=== PATIENT | female | born 1985 | race African-American/Black ===

== ENCOUNTER → 2022-11-12 | Outpatient (CLI) | payer OTHER ==
[2022-11-12 14:30] LABS: FREE T4 1.32 NG/DL (0.89-1.76)
[2022-11-12 14:31] LABS: THYROID STIMULATING HORMONE 0.034 uIU/ML (0.55-4.78)
== END ==
LOC: M PLALAB 10:50
PROVIDERS: ATTEND Nurse Practitioner Family
DX: E89.0 Postprocedural hypothyroidism (principal)

== ENCOUNTER → 2023-01-24 | Outpatient (CLI) | payer OTHER | LOC: M PLAIMG 15:23 | PROVIDERS: ATTEND Student in an Organized Health Care Education/Training Program | DX: M54.59 Other low back pain (principal) ==

== ENCOUNTER 2023-09-18 20:06 | Emergency (ER) | payer OTHER ==
[~2023-09-18] VITALS: Ht 165.1 cm; Wt 134.3 kg
[2023-09-18] MEDS ORDERED: METF-838 (21:16)
[2023-09-18] MEDS ORDERED: SYNT25TA (21:16)
[2023-09-18] MEDS ORDERED: DULO1CAP4 (21:16)
[2023-09-18] MEDS ORDERED: TIZA2TA (21:16)
[2023-09-18 21:40] LABS: HEMATOCRIT 33.2 % (36.0-47.0); MEAN CORPUSCULAR HEMOGLOBIN 25.6 pg (27.0-33.0); MEAN CORPUSCULAR HGB CONC 33.1 g/dl (32.0-36.5); MEAN CORPUSCULAR VOLUME 77.4 fl (80.0-96.0); PLATELET COUNT, AUTOMATED 288 10^3/uL (150-450); RED BLOOD COUNT 4.29 10^6/uL (4.00-5.40); WHITE BLOOD COUNT 11.5 10^3/uL (4.0-10.0)
[2023-09-18] MEDS ORDERED: ANUS25SU PR (21:46)
[2023-09-18 21:58] VITALS: BP 128/74; TEMP 98.4; O2SAT 100
== END 2023-09-18 21:59 | disposition home or self-care (01) ==
LOC: M ED 20:06
DX: K64.9 Unspecified hemorrhoids (principal); Z88.0 Allergy status to penicillin

== ENCOUNTER → 2023-11-24 | Outpatient (REF) | payer OTHER ==
[~2023-11-24] MED LIST: ANUS25SU PR; DULO1CAP4; METF-838; SYNT25TA; TIZA2TA
[2023-11-24 17:48] LABS: APPEARANCE, URINE CLEAR (CLEAR); BACTERIA, URINE AUTO 1+ (NEGATIVE); BILIRUBIN, URINE AUTO NEGATIVE (NEGATIVE); BLOOD, URINE BLOOD 3+ (NEGATIVE); CALCIUM OXALATE CRYSTALS SMALL; COLOR, URINE STRAW (YELLOW); GLUCOSE, URINE (UA) AUTO 1+ mg/dL (NEGATIVE); KETONE, URINE AUTO NEGATIVE (NEGATIVE); LEUKOCYTE ESTERASE, URINE AUTO NEGATIVE (NEGATIVE); NITRITE, URINE AUTO NEGATIVE (NEGATIVE); PROTEIN, URINE AUTO NEGATIVE (NEGATIVE); RBC, URINE AUTO 5 /HPF (0-3); SQUAMOUS EPITHELIAL CELL UR AU 0 /HPF (0-6); UROBILINOGEN, URINE AUTO 0.2 mg/dL (0.0-2.0); WBC, URINE AUTO 1 /HPF (0-3)
[2023-11-24 18:01] LABS: CREATININE,RANDOM URINE 47.6 MG/DL
== END ==
LOC: M SFHCRHEU 15:28
PROVIDERS: ATTEND Internal Medicine
DX: R76.8 Other specified abnormal immunological findings in serum (principal)

== ENCOUNTER → 2023-11-28 | Outpatient (REF) | payer OTHER ==
[2023-11-28 16:47] LABS: APPEARANCE, URINE CLEAR (CLEAR); BACTERIA, URINE AUTO NEGATIVE (NEGATIVE); BILIRUBIN, URINE AUTO NEGATIVE (NEGATIVE); BLOOD, URINE BLOOD 1+ (NEGATIVE); COLOR, URINE STRAW (YELLOW); GLUCOSE, URINE (UA) AUTO NEGATIVE (NEGATIVE); KETONE, URINE AUTO NEGATIVE (NEGATIVE); LEUKOCYTE ESTERASE, URINE AUTO TRACE (NEGATIVE); MUCUS, URINE SMALL (NEGATIVE); NITRITE, URINE AUTO NEGATIVE (NEGATIVE); PROTEIN, URINE AUTO NEGATIVE (NEGATIVE); RBC, URINE AUTO 2 /HPF (0-3); SPECIFIC GRAVITY URINE AUTO 1.012 (1.002-1.035); SQUAMOUS EPITHELIAL CELL UR AU 0 /HPF (0-6); UROBILINOGEN, URINE AUTO 0.2 mg/dL (0.0-2.0); WBC, URINE AUTO 1 /HPF (0-3)
[2023-11-28 17:04] LABS: TOTAL PROTEIN,RANDOM URINE 12.3 MG/DL (0.0-14.0)
[2023-11-28 17:09] LABS: CREATININE,RANDOM URINE 73.4 MG/DL
[2023-11-28 17:13] LABS: COMPLEMENT C4 56.9 MG/DL (12-36)
[2023-12-03 09:11] LABS: COMPLEMENT TOTAL (CH50) > 60 U/mL (>41)
== END ==
LOC: M SFHCRHEU 12:45
PROVIDERS: ATTEND Internal Medicine
DX: R76.8 Other specified abnormal immunological findings in serum (principal); M25.50 Pain in unspecified joint

== ENCOUNTER → 2023-12-05 | Outpatient (CLI) | payer OTHER ==
[~2023-12-05] MED LIST changes: +GASTROGRAFIN SOLUTION 30ML As Ordered ONE; +ISOVUE-370 76% 100ML VIAL As Ordered ONE
== END ==
LOC: M RAD 15:27
PROVIDERS: ATTEND Family Medicine
DX: R22.2 Localized swelling, mass and lump, trunk (principal); K42.9 Umbilical hernia without obstruction or gangrene; N85.2 Hypertrophy of uterus
CPT/HCPCS: 74177; Q9967

== ENCOUNTER → 2023-12-19 | Outpatient (CLI) | payer OTHER ==
[~2023-12-19] MED LIST changes: -GASTROGRAFIN SOLUTION 30ML As Ordered ONE; -ISOVUE-370 76% 100ML VIAL As Ordered ONE
== END ==
LOC: M PLAIMG 09:26
PROVIDERS: ATTEND Internal Medicine
DX: M54.9 Dorsalgia, unspecified (principal); M75.81 Other shoulder lesions, right shoulder; M75.82 Other shoulder lesions, left shoulder; R93.89 Abnormal findings on diagnostic imaging of other specified body structures

== ENCOUNTER → 2023-12-19 | Outpatient (CLI) | payer OTHER | LOC: M SLEEP HO 11:21 | PROVIDERS: ATTEND Internal Medicine | DX: G47.9 Sleep disorder, unspecified (principal); R53.82 Chronic fatigue, unspecified ==

== ENCOUNTER 2024-01-20 08:33 | Day surgery (SDC) | payer OTHER ==
[~2024-01-20] VITALS: Ht 165.1 cm; Wt 134.3 kg
[~2024-01-20 08:33] MED LIST changes: +AMLO1TAB25 PO; +D 50CAP2 PO; +LEVO2TA PO; +MICA80TA2 PO; +NAPR-885 PO; +OMEP-173 PO; +TIZA10TA PO; +propofoL 200 MG/20 ML VIAL As Ordered ONE
[2024-01-20] MEDS: NS 1,000 ML IV ONE (09:02)
[2024-01-20 10:19] VITALS: TEMP 98.5
[2024-01-20 10:41] VITALS: BP 143/90; O2SAT 98
== END 2024-01-20 10:51 | disposition home or self-care (01) ==
LOC: M OPP 08:33
PROVIDERS: ATTEND Internal Medicine Gastroenterology
DX: D12.6 Benign neoplasm of colon, unspecified (principal); K64.8 Other hemorrhoids; K64.4 Residual hemorrhoidal skin tags; K57.30 Diverticulosis of large intestine without perforation or abscess without bleeding; D50.9 Iron deficiency anemia, unspecified; K92.1 Melena; K29.70 Gastritis, unspecified, without bleeding; K44.9 Diaphragmatic hernia without obstruction or gangrene; E11.9 Type 2 diabetes mellitus without complications; G47.30 Sleep apnea, unspecified; Z99.89 Dependence on other enabling machines and devices; E03.9 Hypothyroidism, unspecified; Z79.1 Long term (current) use of non-steroidal anti-inflammatories (NSAID); Z79.84 Long term (current) use of oral hypoglycemic drugs; Z79.890 Hormone replacement therapy; Z79.891 Long term (current) use of opiate analgesic; Z79.899 Other long term (current) drug therapy; Z88.0 Allergy status to penicillin

== ENCOUNTER → 2024-01-27 | Outpatient (CLI) | payer OTHER ==
[~2024-01-27] MED LIST changes: -propofoL 200 MG/20 ML VIAL As Ordered ONE
== END ==
LOC: M PLAIMG 09:12
PROVIDERS: ATTEND Internal Medicine
DX: R93.5 Abnormal findings on diagnostic imaging of other abdominal regions, including retroperitoneum (principal)